=== PATIENT | male | born 1980 | race African-American/Black ===

== ENCOUNTER 2020-11-01 08:38 | Emergency (ER) | payer BC, SELFPAY ==
[2020-11-01 08:44] VITALS: BP 150/101; PULSE 77; RESP 18; TEMP 36.1; O2SAT 100
[2020-11-01] MEDS: KETOROLAC (*BKC) 60 MG/2 ML VIAL IM (09:10)
--- NOTE | 2020-11-01 09:25 | ED.UPPEXIN ---
HPI - Extremity Injury (Upper) General Chief Complaint: Extremity Injury, Upper Stated Complaint: Right Shoulder Pain Time Seen by Provider: 11/01/20 08:42 History of Present Illness HPI narrative: Patient is a 40-year-old male who presents ER with right shoulder pain x1 week. Its located over the trapezius musculature of the right arm. Reports she will occasionally get some tingling when he stretches his arm. He has no functional loss in the extremity. No known trauma. Patient works on [employer] for [employer]. Denies any pain at his shoulder joint. Has been taking ibuprofen with mild improvement. Pain had gone away yesterday but when he woke up today it had returned. Related Data Allergies Allergy/AdvReac Type Severity Reaction Status Date / Time No Known Allergies Allergy Verified 11/01/20 08:47 Review of Systems Constitutional: Constitutional: Denies chills and Denies fever(s) Cardiovascular: Cardiovascular: Denies chest pain, Denies rapid heart rate and Denies radiating jaw, neck or arm pain Musculoskeletal: Musculoskeletal: Denies back pain, Denies arthralgias, Denies joint swelling and Reports muscle cramps Neurologic: Denies focal weakness and Reports numbness (Transient tingling) PMFSH Past Medical History Medical History (Updated 11/01/20 @ 09:30 by Wilton Kaur MD) Healthy adult male Surgical History Surgical History (Updated 11/01/20 @ 09:27 by Wilton Kaur MD) No pertinent past surgical history Social History Social History (Updated 11/01/20 @ 09:27 by Wilton Kaur MD) Smoking status: Never smoker Gender identity (if verbalized by the patient): Male Exam Narrative: Exam Narrative: GENERAL: Well-appearing, morbidly obese, and in no acute distress. HEAD: Normocephalic, atraumatic. Neck: No midline tenderness of the cervical spine, mild right paraspinal muscle discomfort but increased tenderness over the right trapezius muscle. No palpable spasm. No bruising or swelling. CHEST: Clear to auscultation. No respiratory distress. HEART: Regular rate and rhythm. Normal peripheral pulses. NEURO: Alert and oriented x3. PSYCH: Normal mood and affect. Course Course Emergency Course: Toradol for pain here. Discharge with muscle relaxers and naproxen. Discussed stretching and other conservative therapy. Patient verbalized understanding. Discharge home. Recommend follow-up with PCP should pain persist. No infectious syndrome, no trauma, no pain in actual joint. No imaging necessary at this time. Vital Signs Vital signs: Vital Signs Temperature 97 F L 11/01/20 08:44 Pulse Rate 77 11/01/20 08:44 Respiratory Rate 18 11/01/20 08:44 Blood Pressure 150/101 H 11/01/20 08:44 Pulse Oximetry 100 11/01/20 08:44 Temperature 97 F L 11/01/20 08:44 Pulse Rate 77 11/01/20 08:44 Respiratory Rate 18 11/01/20 08:44 Blood Pressure 150/101 H 11/01/20 08:44 Pulse Oximetry 100 11/01/20 08:44 Discharge Plan Discharge Clinical Impression: Strain of right trapezius muscle Patient Disposition: Home, Self-Care Condition: Stable Instructions: Muscle Strain (ED), Exercises for Shoulder Flexion and Extension (ED) Additional Instructions: Return to the ER if you have increased pain in your back/shoulder, you develop lower extremity weakness/numbness/paralysis, you have numbness or tingling in your private parts, or you are unable to control your ability to urinate/stool. Take your naproxen with food to prevent gastric ulcer formation. Prescriptions: New naproxen 500 mg tablet 500 mg PO BID Qty: 20 RF: 0 tizanidine 4 mg capsule 4 mg PO Q8H PRN (Reason: muscle spasticity) Qty: 20 RF: 0 Follow-up/Referrals: Yaya Camarena MD [Physician] - 1 Week PHYSICIAN,CLINICAL RESEARCH ADMINISTRATOR [Non-Staff] -
[2020-11-01 09:40] VITALS: TEMP 36.1
== END 2020-11-01 09:39 | disposition home or self-care (01) ==
PROVIDERS: Emergency Provider Emergency Medicine
DX: S46.811A Strain of other muscles, fascia and tendons at shoulder and upper arm level, right arm, initial encounter (principal); X58.XXXA Exposure to other specified factors, initial encounter
CPT/HCPCS: 96372; 99283; J1885

== ENCOUNTER 2021-09-30 08:09 | Outpatient (CLI) | payer BC, SELFPAY ==
--- NOTE | 2021-09-30 | ECG_ITS ---
Measurements Intervals [place] Rate: 83 P: 30 RI: 128 QRS: -6 QRSD: 121 T: 120 QT: 383 QTc: 451 Interpretive Statements SINUS RHYTHM INCOMPLETE LEFT BUNDLE BRANCH BLOCK BORDERLINE ST-T WAVE ABNORMALITY- INF/LAT LEADS BASELINE WANDER- I, II, AVR, AVL, AVF, V1-V6 ABNORMAL ECG Electronically Signed On 09-30-2021 10:25:00 [employer]OD SERVICE EMPLOYEE by Chriss Burden D.O.
[2021-09-30 08:37] LABS: Basophils Percent Auto 0.4 % (0.2-1.2); Eosinophils Absolute Auto 0.1 K/mm3 (0-0.3); Eosinophils Percent Auto 1.1 % (0-4.4); Hematocrit 38.1 % (42.0-52.0); Immature Granulocyte Absolute 0.02 K/mm3 (0.00-0.031); Immature Granulocyte Percent A 0.3 % (0-0.5); Lymphocytes Absolute Auto 3.27 K/mm3 (0.9-3.2); Lymphocytes Percent Auto 41.5 % (18.3-44.2); Mean Corpuscular HGB Conc 31.5 g/dl (32-36); Mean Corpuscular Hemoglobin 25.1 pg (26-34); Mean Corpuscular Volume 79.7 fl (80-100); Monocytes Absolute Auto 0.6 K/mm3 (0.1-0.6); Monocytes Percent Auto 8.1 % (2.6-8.5); Neutrophils Absolute Auto 3.8 K/mm3 (1.3-6.7); Neutrophils Percent Auto 48.6 % (45.5-73.1); Platelet Count Result 236 k/mm3 (150-375); Red Blood Count 4.78 M/mm3 (4.6-6.20); Red Cell Distribution Width 18.1 % (11.5-14.5); White Blood Count 7.9 K/mm3 (4.5-10.0)
== END 2021-09-30 08:10 | disposition home or self-care (01) ==
PROVIDERS: PCP Nurse Practitioner Family; Visit Provider Nurse Practitioner Adult Health
DX: I10 Essential (primary) hypertension (principal); Z68.43 Body mass index [BMI] 50.0-59.9, adult; R94.31 Abnormal electrocardiogram [ECG] [EKG]
CPT/HCPCS: 36415; 85025; 93005

== ENCOUNTER → 2023-06-24 10:46 | Outpatient (CLI) | payer BC, SELFPAY ==
--- NOTE | ~2023-06-24 | US_ITS ---
EXAMINATION: US soft tissue groin RT DATE: 06/24/2023 11:03 INDICATION: Right groin pain TECHNIQUE: Multiple grayscale and Doppler ultrasound images of the site of pain at the right groin we re obtained including with Valsalva. COMPARISON: None FINDINGS as IMPRESSION: No abnormal masses, fluid collections or hernias identified at the region of concern. Reviewed, dictated and finalized at location A. DING MAT[employer]S SALES ATTENDANT
== END ==
PROVIDERS: PCP Nurse Practitioner Family; Visit Provider Nurse Practitioner Family
DX: R10.2 Pelvic and perineal pain (principal)
CPT/HCPCS: 76882

== ENCOUNTER → 2023-08-01 11:32 | Outpatient (CLI) | payer BC, SELFPAY ==
--- NOTE | ~2023-08-01 | XR_ITS ---
EXAMINATION: XR lumbar spine 2-3V DATE: 08/01/2023 11:55 INDICATION: Low back pain TECHNIQUE: Anteroposterior and lateral views of the lumbar spine, and cone-down lateral view of the l umbosacral junction were obtained. COMPARISON: None. FINDINGS: There are 12 degrees of lumbar dextroscoliosis. Bone alignment is normal. There is no fract ure. The vertebral body heights are maintained. There is mild loss of intervertebral disc space heigh t at L1-2 and L4-5. Small degenerative osteophytes project from the anterior endplates of multiple ve rtebral bodies. IMPRESSION: 1. Mild lumbar spondylosis without acute findings. Reviewed, dictated and finalized at location B. K INSPECTOR
== END ==
PROVIDERS: PCP Nurse Practitioner Family; Visit Provider Nurse Practitioner Family
DX: R20.2 Paresthesia of skin (principal); M47.896 Other spondylosis, lumbar region
CPT/HCPCS: 72100